=== PATIENT | female | born 1945 | race Caucasian/White ===

== ENCOUNTER 2018-07-25 19:46 | Outpatient (CLI) | payer MEDICARE, OTHER | END 2018-07-25 19:47 | disposition short-term general hospital (02) | LOC: EMS 19:46 | PROVIDERS: ATTEND Surgery | DX: R06.02 Shortness of breath (principal); R61 Generalized hyperhidrosis; R11.10 Vomiting, unspecified | CPT/HCPCS: A0425; A0427 ==